=== PATIENT | female | born 1975 | race African-American/Black ===

== ENCOUNTER 2022-09-23 05:34 | Emergency (ER) | payer SELFPAY ==
[2022-09-23] MEDS ORDERED: Famotidine/PF 20 mg/2ml Vial ONE (06:17)
[2022-09-23] MEDS ORDERED: Lidocaine Viscous Sol 2% 15 ml UD Cup ONE (06:18)
[2022-09-23] MEDS ORDERED: Mag-Al Plus 1200 MG/1200 MG/120 MG/30 ML UDCUP ONE (06:18)
[2022-09-23 06:35] LABS: ALT (SGPT) 20 U/L (8-55); AST (SGOT) 38 U/L (5-34); Albumin 4.2 g/dL (3.5-5.0); Alkaline Phosphatase 83 U/L (40-110); Anion Gap 17 mmol/L (10-20); BUN (Urea Nitrogen) 11 mg/dL (7.0-18.7); Bilirubin, Total 0.5 mg/dL (0.2-1.2); Calc. Creatinine Clearance 0 mL/min (70-130); Calcium 8.9 mg/dL (7.8-10.44); Carbon Dioxide 23 mmol/L (22-29); Chloride 102 mmol/L (98-107); Estimated GFR 73; Globulin 3.8 g/dL (2.4-3.5); Glucose 106 mg/dL (70-105); Lipase 17 U/L (8-78); Potassium 3.3 mmol/L (3.5-5.1); Sodium 139 mmol/L (136-145)
[2022-09-23 06:36] LABS: #Eosinphils 0.1 10x3/uL (0.0-0.5); #Neutrophils 3.1 10x3/uL (1.5-8.4); %Basophils 0.3 % (0.0-2.0); %Eosinophils 1.2 % (0.0-6.0); %Lymphocytes 35.9 % (18.0-47.0); %Monocytes 14.9 % (0.0-10.0); %Neutrophils 47.4 % (40.0-75.0); Hemoglobin 12.5 g/dL (12.0-15.5); Mean Corpuscular HGB CONC 32.1 g/dL (32.0-36.0); Mean Corpuscular Hemoglobin 21.4 pg (27.0-33.0); Mean Corpuscular Volume 66.9 fl (81.6-98.3); Mean Platelet Volume 9.2 fl (7.4-10.4); Platelet Count 398 10x3/uL (150-450); RBC Distribution Width 16.5 % (11.5-14.5); Red Blood Cell (RBC) Count 5.83 10x6/uL (3.90-5.03); White Blood Cell (WBC) Count 6.6 10x3/uL (3.5-10.5)
[2022-09-23 07:52] LABS: Microcytosis MODERATE=15-30 cells (100X) (0-5/hpf); Platelet Morphology Comment Appears Adequate
[2022-09-23] MEDS ORDERED: Iopamidol 300 61% 100 ML VIAL FS ONE (11:49)
== END 2022-09-23 08:27 | disposition home or self-care (01) ==
LOC: CSHERS 05:34
DX: R10.13 Epigastric pain (principal); I10 Essential (primary) hypertension; Z79.899 Other long term (current) drug therapy
CPT/HCPCS: 74022; 74177; 80053; 83690; 84484; 85025; 96374; S0028

== ENCOUNTER 2023-05-15 12:28 | Outpatient (CLI) | payer BC | END 2023-05-15 12:29 | disposition home or self-care (01) | LOC: CSHMRI 12:28 | PROVIDERS: ATTEND Anesthesiology Pain Medicine | DX: M43.16 Spondylolisthesis, lumbar region (principal); M43.17 Spondylolisthesis, lumbosacral region; N94.89 Other specified conditions associated with female genital organs and menstrual cycle; M47.816 Spondylosis without myelopathy or radiculopathy, lumbar region; M48.07 Spinal stenosis, lumbosacral region | CPT/HCPCS: 72100; 72148 ==